=== PATIENT | female | born 1955 | race Caucasian/White ===

== ENCOUNTER 2017-11-20 09:11 | Outpatient (CLI) | payer MEDICARE ==
--- NOTE | 2017-11-20 11:27 | Mammography Report ---
BONE DENSITY STUDY: Osteoporosis screening. DEFINITIONS: BMD = Bone Mineral Density T-score = BMD related to mean peak bone mass of young adult (mean expressed in Standard Deviation) Z-score = Age matched BMD expressed in SD World Health Organization (WHO) Diagnostic Criteria Normal T-score > -1 SD Osteopenia T-score between -1 and -2.4 SD Osteoporosis T-score -2.5 SD or below FINDINGS: The weighted average BMD of lumbar spine L1-L4 is 0.913 with a T-score of -1.2. The weighted average BMD of the left hip is 0.803 with a T-score of -1.1. The BMD of the left femoral neck is 0.576 with a T. value score of -2.5. IMPRESSION: The patient's average T-score is diagnostic for osteopenia and average relative risk for fracture. NOTE: BMD is not the only risk factor for fracture; also consider factors such as the patient's age, risk of falling, previous osteoporotic fracture, family history of osteoporotic fractures, current smoker, and low body weight. Soto's triangle is a region of interest in femur, predominantly of trabecular bone. It is not a true anatomic site, and [facility] does not recommend its use clinically.
--- NOTE | 2017-11-20 13:15 | Mammography Report ---
Screening mammogram: Patient with prior breast reduction surgery and no comparison exams available. Both breasts demonstrate fibroglandular distortion consistent with reduction surgery. There is asymmetric fibroglandular tissue in the upper-outer left breast compared to the right however no definable mass or suspicious area is noted. There bilateral lipoid cysts. In the posterior medial right breast there is a aggregate of dystrophic appearing calcification associated with a somewhat inhomogeneous area of focal density most likely representing fat necrosis. CAD used. Impression: Post reduction surgical changes. No currently suspicious findings. Recommendation: Annual mammogram followup. BI-RADS CATEGORY: 2 = Benign ACR BI-RADS MAMMOGRAPHIC CODES: 0 = Needs additional imaging evaluation; 1 = Negative; 2 = Benign; 3 = Probably benign; 4 = Suspicious; 5 = Malignant; 6 = Known biopsy-proven malignancy COMMENT: 1. Dense breast tissue, i.e., adenosis, fibrocystic changes, etc., may obscure an underlying neoplasm. 2. Approximately 10% of cancers are not detected with mammography. 3. A negative mammography report should not delay biopsy if a clinically suspicious mass is present. The
== END 2017-11-20 09:12 | disposition home or self-care (01) ==
LOC: MAMMO 09:11
PROVIDERS: ATTEND Advanced Practice Midwife
DX: Z12.31 Encounter for screening mammogram for malignant neoplasm of breast (principal); N95.8 Other specified menopausal and perimenopausal disorders; M85.88 Other specified disorders of bone density and structure, other site; I10 Essential (primary) hypertension; M19.90 Unspecified osteoarthritis, unspecified site; F17.219 Nicotine dependence, cigarettes, with unspecified nicotine-induced disorders
CPT/HCPCS: 77067; 77080